=== PATIENT | male | born 1960 ===

== ENCOUNTER 2018-07-22 18:21 | Emergency (ER) | payer MEDICAID ==
[2018-07-22] MEDS ORDERED: Sodium Chloride 0.9% 1,000 ML IV ONE (18:48)
--- NOTE | 2018-07-22 18:58 | C.PDOC ---
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 Patient denies fever, chills, and diarrhea. Time Seen by Provider: 07/22/18 18:41 Chief Complaint (Nursing): Abdominal Pain History Per: Patient History/Exam Limitations: no limitations Onset/Duration Of Symptoms: Hrs Current Symptoms Are (Timing): Still Present Location Of Pain/Discomfort: Other (mid-abdomen ) Quality Of Discomfort: "Pain" Associated Symptoms: Nausea, Vomiting. denies: Fever, Chills, Diarrhea Additional History Per: Patient Past Medical History Reviewed: Historical Data, Nursing Documentation, Vital Signs Vital Signs: Last Vital Signs Temp 98.3 F 07/22/18 18:27 Pulse 78 07/22/18 18:27 Resp 22 07/22/18 18:27 BP 122/71 07/22/18 18:27 Pulse Ox 100 07/22/18 18:27 Primary Care Provider: Non [facility] Provider, - Medical History PMH: No Chronic Diseases Surgical History: No Surg Hx Family History: States: Unknown Family Hx - Social History Hx Alcohol Use: Yes (weekends only) Hx Substance Use: No - Immunization History Hx Tetanus Toxoid Vaccination: No Hx Influenza Vaccination: No Hx Pneumococcal Vaccination: No Review Of Systems Constitutional: Negative for: Fever, Chills Gastrointestinal: Positive for: Nausea, Vomiting, Abdominal Pain (mid-abdomen ). Negative for: Diarrhea Physical Exam - Physical Exam Appears: Non-toxic, Other (appears uncomfortable, belching ) Skin: Normal Color, Warm, Dry Head: Atraumatic, Normacephalic Eye(s): bilateral: Normal Inspection Oral Mucosa: Moist Neck: Supple Chest: Symmetrical, No Deformity, No Tenderness Cardiovascular: Rhythm Regular, No Murmur Respiratory: Normal Breath Sounds, No Rales, No Rhonchi, No Wheezing Gastrointestinal/Abdominal: Bowel Sounds (very active ), Soft, Tenderness (diffuse, mostly in mid-abdomen ), Distention, No Guarding, No Rebound Extremity: Normal ROM, Capillary Refill (less than 2 seconds ) Neurological/Psych: Oriented x3, Normal Speech, Normal Cognition ED Course And Treatment - Laboratory Results Result Diagrams: 07/22/18 19:42 07/22/18 19:42 Lab Interpretation: Abnormal (WBC 14.8) ECG: Interpreted By Me ECG Rhythm: Sinus Bradycardia ECG Interpretation: No Acute Changes O2 Sat by Pulse Oximetry: 100 (on RA) Pulse Ox Interpretation: Normal - Other Rad obstructive series X-Ray: Interpreted by Me Interpretation: unremarkable bowel gas pattern, ? early ileus. - CT Scan/US CT abd/pel Other Rad Studies (CT/US): Read By Radiologist, Radiology Report Reviewed CT/US Interpretation: EXAM: CT Abdomen and Pelvis with IV contrast. CLINICAL HISTORY: Abd pain and vomiting. TECHNIQUE: Axial computed tomography images of the abdomen and pelvis with intravenous contrast. 0.00 mGy-cm. CONTRAST: With; OMNI 240 & 100MLS VISI 320. COMPARISON: None provided. FINDINGS: LUNG BASES: Mild atelectasis near the lung bases. The visualized heart is mildly enlarged. LIVER: Unremarkable. GALLBLADDER AND BILE DUCTS: Gallbladder is decompressed. PANCREAS: Unremarkable. SPLEEN: Unremarkable. ADRENAL GLANDS: Unremarkable. KIDNEYS, URETERS, AND BLADDER: Bladder is decompressed with questionable wall thickening versus underdistention. Please correlate clinically. STOMACH AND BOWEL: Stomach is decompressed. Questionable wall thickening versus underdistention involving the distal stomach. Please correlate clinically. There appear to be areas of wall thickening involving multiple small bowel loops. Some of these are also top normal in caliber. Some of the more distal loops are decompressed. However, contrast passes through to the colon. The finding is most compatible with enteritis and ileus. Less likely possibility includes early emerging partial small bowel obstruction. Please correlate clinically and if indicated followup can be obtained. APPENDIX: N ormal caliber appendix is noted. PERITONEUM: No free fluid. No free air. LYMPH NODES: No lymphadenopathy is evident. REPRODUCTIVE: Unremarkable as visualized. VASCULATURE: No evidence of abdominal aortic aneurysm. BONES: Mild multilevel degenerative spine changes. IMPRESSION: 1. Mild atelectasis near the lung bases. 2. The visualized heart is mildly enlarged. 3. Bladder is decompressed with questionable wall thickening versus underdistention. Please correlate clinically. 4. Stomach is decompressed. Questionable wall thickening versus underdistention involving the distal stomach. Please correlate clinically. 5. There appear to be areas of wall thickening involving multiple small bowel loops. Some of these are also top normal in caliber. Some of the more distal loops are decompressed. However, contrast passes through to the colon. The finding is most compatible with enteritis and ileus. Less likely possibility includes early emerging partial small bowel obstruction. Please correlate clinically and if indicated followup can be obtained. 6. Additional findings as described above. Progress Note: Bloodwork and Obstructive Series Abdomen ordered and reviewed. Morphine IVP, Zofran IVP, and IV Fluids given. Reevaluation Time: 00:08 Reassessment Condition: Improved (Patient feels better and prefers to home. He understands that he may have an early bowel obstruction and will return to the ED if pain or vomiting recurs.) Disposition Counseled Patient/Family Regarding: Studies Performed, Diagnosis, Need For Followup - Disposition Referrals: [facility] [Outside] Disposition: HOME/ ROUTINE Disposition Time: 00:09 Condition: IMPROVED Instructions: Acute Abdomen (Belly Pain), Adult (DC), Nausea and Vomiting, Adult (DC) Forms: [employer] (Divehi) Print Language: MALTESE - Clinical Impression Clinical Impression: Abdominal pain, Vomiting - Scribe Statement The provider has reviewed the documentation as recorded by the Scribe (Estella Li) Provider Attestation: All medical record entries made by the Scribe were at my direction and personally dictated by me. I have reviewed the chart and agree that the record accurately reflects my personal performance of the history, physical exam, medical decision making, and the department course for this patient. I have also personally directed, reviewed, and agree with the discharge instructions and disposition.
[2018-07-22] MEDS ORDERED: Sodium Chloride 0.9% 1,000 ML ONE (19:10)
[2018-07-22] MEDS ORDERED: Iohexol 240 (50 ml) PO ONE (19:21)
[2018-07-22] MEDS ORDERED: Iohexol 240 (50 ml) ONE (19:46)
[2018-07-22 19:53] LABS: BASO % 0.1 % (0.0-2.0); EOS % 0.2 % (0.0-4.0); HEMOGLOBIN 15.5 g/dL (12.0-18.0); LYMPH # 0.9 K/uL (1.0-4.3); LYMPH % 6.2 % (20.0-40.0); MEAN CELL VOLUME 90.2 fL (80.0-94.0); MEAN CORPUSCULAR HEMOGLOBIN 30.7 pg (27.0-31.0); MEAN PLATELET VOLUME 11.6 fL (7.2-11.7); MONO # 0.7 K/uL (0.0-0.8); MONO % 4.8 % (0.0-10.0); NEUT # 13.1 K/uL (1.8-7.0); NEUT % 88.7 % (50.0-75.0); PLATELET COUNT 131 K/uL (130-400); RBC 5.06 Mil/uL (4.40-5.90); RED CELL DISTRIBUTION WIDTH 13.5 % (11.5-14.5); WHITE BLOOD COUNT 14.8 K/uL (4.8-10.8)
[2018-07-22 20:08] LABS: ALB/GLOB RATIO 1.3 (1.0-2.1); ALBUMIN 4.5 g/dL (3.5-5.0); ALT/SGPT 22 U/L (21-72); AST/SGOT 30 U/L (17-59); BLOOD UREA NITROGEN 21 mg/dL (9-20); GFR NON-AFRICAN AMERICAN > 60; LIPASE 53 U/L (23-300)
[2018-07-22 20:53] LABS: BANDS 6 % (0-2); LYMPHOCYTE 6 % (20-40); MONOCYTE 6 % (0-10); NEUTROPHIL 82 % (50-75); PLATELET ESTIMATE NORMAL (NORMAL); TOTAL CELLS COUNTED 100
[2018-07-22 20:54] LABS: LARGE PLATELETS PRESENT; MICROCYTOSIS SLIGHT
[2018-07-22] MEDS ORDERED: Iodixanol 320 MG/ML 100 ML BOTTLE IV ONE (21:20)
[2018-07-22 23:55] VITALS: O2SAT 100
[2018-07-23 00:13] VITALS: BP 115/62; PULSE 55; RESP 16; TEMP 97.4
--- NOTE | 2018-07-23 09:11 | CT ---
Date of service: 07/22/2018 PROCEDURE: CT Abdomen and Pelvis with contrast HISTORY: abdominal pain and vomiting COMPARISON: None. TECHNIQUE: Contrast dose: 100 mL Visipaque 320 Radiation dose: Total exam DLP = 527.59 mGy-cm. This CT exam was performed using one or more of the following dose reduction techniques: Automated exposure control, adjustment of the mA and/or kV according to patient size, and/or use of iterative reconstruction technique. FINDINGS: LOWER THORAX: Unremarkable. LIVER: Unremarkable. No gross lesion or ductal dilatation. GALLBLADDER AND BILE DUCTS: Unremarkable. PANCREAS: Unremarkable. No gross lesion or ductal dilatation. SPLEEN: Unremarkable. ADRENALS: Unremarkable. No mass. KIDNEYS AND URETERS: Unremarkable. No hydronephrosis. No solid mass. VASCULATURE: Unremarkable. No aortic aneurysm. No aortic atherosclerotic calcification or mural plaque present. BOWEL: Unremarkable. No obstruction. No gross mural thickening. APPENDIX: Normal appendix. PERITONEUM: Unremarkable. No free fluid. No free air. LYMPH NODES: Unremarkable. No enlarged lymph nodes. BLADDER: Nondistended. REPRODUCTIVE: Normal prostate. BONES: No acute fracture. OTHER FINDINGS: None. IMPRESSION: Unremarkable examination. No evidence of bowel obstruction or other bowel pathology. The preliminary findings for this examination were reported by [facility] at 11:46 p.m. on 07/22/2018. There is discordance of this report with the preliminary findings. There is no evidence of enteritis or mechanical small-bowel obstruction or ileus..
--- NOTE | 2018-07-23 12:01 | RAD ---
Date of service: 07/22/2018 PROCEDURE: Radiographs of the chest and abdomen (obstructive series) HISTORY: abd pain COMPARISON: No prior. TECHNIQUE: AP radiograph of the chest, with upright and supine radiographs of the abdomen. 3 views obtained. FINDINGS: CHEST: Lungs: Clear. Cardiovascular: Normal size heart. No pulmonary vascular congestion. No aortic atherosclerotic calcification present Pleura: No pleural fluid. No pneumothorax. Other findings: None. ABDOMEN AND PELVIS: Bowel: Unremarkable bowel gas pattern. No evidence of mechanical obstruction. Free air: None. Bones: Unremarkable. Other findings: None. IMPRESSION: Unremarkable radiographs of chest and abdomen. No evidence of mechanical bowel obstruction.
--- NOTE | 2018-07-23 12:11 | CARD ---
APPROVED REPORT Date of service: 07/22/2018 EKG Measurement Heart [id number] <Conclusion> Sinus bradycardia Otherwise normal ECG
== END 2018-07-23 00:17 | disposition home or self-care (01) ==
LOC: C.ER 18:21
DX: R11.10 Vomiting, unspecified (principal)
CPT/HCPCS: 74022; 74177; 80053; 83690; 85025; 93005; 96374; 96375; 99284; J2270; J2405; J7030; Q9966; Q9967